=== PATIENT | female | born 1945 | race Two or more races ===

== ENCOUNTER 2022-08-06 23:21 | Inpatient (IN) | payer MEDICARE, OTHER ==
[~2022-08-06] VITALS: Ht 157.5 cm; Wt 81.9 kg
[2022-08-07 00:18] LABS: BASOPHILS % (AUTO) 0.5 % (0.0-2.0); HEMOGLOBIN 9.5 g/dL (12.0-16.0); LYMPHOCYTES # (AUTO) 0.6 K/uL (1.0-4.8); LYMPHOCYTES % (AUTO) 12.2 % (22.0-44.0); MEAN CORPUSCULAR HEMOGLOBIN 34.8 pg (26.0-34.0); MEAN CORPUSCULAR VOLUME 102 fL (80-100); MONOCYTES # (AUTO) 0.2 K/uL (0.1-1.0); MONOCYTES % (AUTO) 4.3 % (2.0-9.0); PLATELET COUNT (AUTO) 100 K/uL (150-450); RED BLOOD CELL COUNT(AUTO) 2.73 MIL/uL (4.00-5.20); RED CELL DISTRIBUTION WIDTH 15.2 % (11.5-14.5)
[2022-08-07 00:22] LABS: CALCIUM, TOTAL 8.2 mg/dL (8.8-10.5); CREATININE 1.14 mg/dL (0.60-1.30); POTASSIUM 4.3 mmol/L (3.5-5.1)
[2022-08-07 00:28] LABS: ALBUMIN 1.4 g/dL (3.4-5.0); BILIRUBIN,TOTAL 0.9 mg/dL (0.1-1.0); TOTAL PROTEIN, SERUM 6.2 g/dL (6.4-8.2)
[2022-08-07 00:30] LABS: AMMONIA 181 umol/L (11-32)
[2022-08-07 00:41] LABS: INR 1.3 (0.9-1.1); PROTHROMBIN TIME 13.6 SEC (9.4-11.6)
[2022-08-07] MEDS ORDERED: LACTULOSE 200 GM/300 ML RECTAL SOLUTION PR ONE (00:45)
[2022-08-07 01:41] LABS: ABG BASE EXCESS -2.3 mmol/L (-2.0-3.0); ABG CARBOXYHEMOGLOBIN 0.3 % (0.0-1.5); ABG HCO3 23.2 mmol/L (22.0-26.0); ABG METHEMOGLOBIN 0.3 % (0.0-1.5); ABG OXYGEN CONTENT 13.5 mL/dL (15.0-23.0); ABG OXYGEN SATURATION 94.5 % (95.0-98.0); ABG OXYHEMOGLOBIN 93.9 % (94.0-100.0); ABG PCO2 28 mmHg (35-45); ABG PH 7.499 (7.35-7.450); ABG TOTAL HEMOGLOBIN 10.2 G/dL (12.0-18.0); PO2, ARTERIAL BG 73.7 mmHg (75.0-83.0); SOURCE, BLOOD GAS ARTERIAL; TEMPERATURE, FAHRENHEIT, BG 98.6 FAHREN (96.0-98.6)
[2022-08-07 01:42] LABS: O2 DEVICE,BLOOD GAS VENTILATOR (ROOM AIR); PEEP,BG 5 cm H2O; SITE, BLOOD GAS RT RADIAL; VT, ABG 400 ml
[2022-08-07] MEDS ORDERED: FentaNYL CIT 1000MCG/0.9% NACL 100 ML IV PRN (05:00)
[2022-08-07] MEDS ORDERED: BISACODYL 10 MG RECTAL RECTAL SUPPOSITORY PR PRN (08:00)
[2022-08-07] MEDS ORDERED: ACETAMINOPHEN 325 MG TABLET PO PRN (08:00)
[2022-08-07] MEDS ORDERED: SODIUM CHLORIDE 0.9% 1,000 ML IV ONE ×3 (08:00→09:00)
[2022-08-07] MEDS ORDERED: DEXTROSE 50%-WATER 25 GM/50 ML SYRINGE IVP PRN (08:00)
[2022-08-07] MEDS: PANTOPRAZOLE SODIUM 40 MG/VIAL IVP SCH (09:20)
[2022-08-07 11:01] LABS: GLUCOSE,POINT OF CARE 169 MG/DL (70-110)
[2022-08-07 11:08] LABS: APPEARANCE,URINE HAZY (CLEAR); BILIRUBIN,URINE NEGATIVE (NEGATIVE); GLUCOSE, URINE (UA) TRACE mg/dL (NEGATIVE); KETONES,URINE NEGATIVE (NEGATIVE); LEUKOCYTE ESTERASE ,URINE LARGE (NEGATIVE); NITRATE,URINE NEGATIVE (NEGATIVE); OCCULT BLOOD,URINE LARGE (NEGATIVE); PH,URINE 5.5 (5.0-8.0); PROTEIN,URINE 100-200,SEE CONFIRM mg/dL (NEGATIVE); SPECIFIC GRAVITIY, URINE 1.013 (1.003-1.030); UROBILINOGEN,URINE <=1.0 mg/dL (<=1.0)
[2022-08-07] MEDS: INSULIN LISPRO 100 UNITS/ML SQ PRN (11:12)
[2022-08-07 11:14] LABS: AMPHET/METH SCREEN,URINE NEGATIVE (NEGATIVE); BARBITURATE SCREEN, URINE NEGATIVE (NEGATIVE); BENZODIAZEPINES SCREEN,URINE NEGATIVE (NEGATIVE); CANNABINOID SCREEN,URINE NEGATIVE (NEGATIVE); COCAINE SCREEN,URINE NEGATIVE (NEGATIVE); METHADONE SCREEN, URINE NEGATIVE (NEGATIVE); OPIATE SCREEN,URINE NEGATIVE (NEGATIVE); PHENCYCLIDINE SCREEN,URINE NEGATIVE (NEGATIVE)
[2022-08-07 11:21] LABS: GLUCOSE,POINT OF CARE 162 MG/DL (70-110)
[2022-08-07] MEDS ORDERED: GELATIN SPONGE,ABSORBABLE 50 MM TP ONE (11:23)
[2022-08-07 12:14] LABS: SULFOSALICYLIC ACID,URINE 1+ (Negative)
[2022-08-07 12:15] LABS: BACTERIA,URINE Rare /HPF (None Seen); SQUAMOUS EPITHELIAL CELL,UR Many /LPF (None Seen)
[2022-08-07] MEDS ORDERED: NOREPINEPHRINE 8 MG/D5%-WATER 250 ML IV ONE (13:03)
[2022-08-07 13:49] LABS: COVID AG,FIA SOURCE NASOPHARYNGEAL
[2022-08-07] MEDS ORDERED: NOREPINEPHRINE 8 MG/D5%-WATER 250 ML IV PRN (14:15)
[2022-08-07 15:42] LABS: CALCIUM, TOTAL 7.9 mg/dL (8.8-10.5); CREATININE 1.27 mg/dL (0.60-1.30); POTASSIUM 4.4 mmol/L (3.5-5.1)
[2022-08-07 15:48] LABS: ALBUMIN 1.1 g/dL (3.4-5.0); BILIRUBIN,TOTAL 1.2 mg/dL (0.1-1.0); TOTAL PROTEIN, SERUM 5.1 g/dL (6.4-8.2)
[2022-08-07] MEDS: LACTULOSE 20 GM/30 ML SOLUTION UDCUP PO SCH ×2 (16:07→20:51)
[2022-08-07] MEDS: RINGERS SOLUTION,LACTATED 1,000 ML IV SCH (18:11)
[2022-08-07] MEDS: TRANEXAMIC ACID 1,000 MG in DEXTROSE 5%-WATER 50 ML IV SCH (18:39)
[2022-08-07 19:18] LABS: ABG CARBOXYHEMOGLOBIN 0.3 % (0.0-1.5); ABG HCO3 25.9 mmol/L (22.0-26.0); ABG METHEMOGLOBIN 0.5 % (0.0-1.5); ABG OXYGEN CONTENT 13.3 mL/dL (15.0-23.0); ABG OXYGEN SATURATION 98.9 % (95.0-98.0); ABG OXYHEMOGLOBIN 98.1 % (94.0-100.0); ABG PCO2 28 mmHg (35-45); ABG PH 7.548 (7.35-7.450); ABG TOTAL HEMOGLOBIN 9.4 G/dL (12.0-18.0); PO2, ARTERIAL BG 156.1 mmHg (75.0-83.0); SOURCE, BLOOD GAS ARTERIAL; TEMPERATURE, FAHRENHEIT, BG 98.6 FAHREN (96.0-98.6)
[2022-08-07 19:19] LABS: O2 DEVICE,BLOOD GAS VENTILATOR (ROOM AIR); PEEP,BG 5 cm H2O; SITE, BLOOD GAS RT RADIAL; VT, ABG 400 ml
[2022-08-08 05:00] VITALS: BP 146/66
[2022-08-08 08:00] VITALS: BP 166/68
[2022-08-08] MEDS: FUROSEMIDE 20 MG/2 ML VIAL IVP SCH (08:43)
[2022-08-08] MEDS: LACTULOSE 20 GM/30 ML SOLUTION UDCUP PO SCH ×2 (08:43→21:34)
[2022-08-08] MEDS: PANTOPRAZOLE SODIUM 40 MG/VIAL IVP SCH (08:43)
[2022-08-08] MEDS: ETHYL ALCOHOL 62% ANTISEPTIC NASAL SANITIZER 0.6 ML AMPUL NASAL SCH ×2 (08:44→21:34)
[2022-08-08] MEDS ORDERED: HydrALAZINE HCL 20 MG/ML VIAL IVP PRN (10:45)
[2022-08-08] MEDS: HydrALAZINE HCL 20 MG/ML VIAL IVP PRN (10:52)
[2022-08-08] MEDS: RINGERS SOLUTION,LACTATED 1,000 ML IV SCH (10:53)
[2022-08-08] MEDS: TRANEXAMIC ACID 1,000 MG in DEXTROSE 5%-WATER 50 ML IV SCH (11:15)
[2022-08-08] MEDS: INSULIN LISPRO 100 UNITS/ML SQ PRN ×3 (11:26→21:35)
[2022-08-08 12:00] VITALS: BP 151/71
[2022-08-08 13:27] LABS: ABG BASE EXCESS -2.8 mmol/L (-2.0-3.0); ABG HCO3 22.8 mmol/L (22.0-26.0); ABG METHEMOGLOBIN 0.3 % (0.0-1.5); ABG OXYGEN CONTENT 13.3 mL/dL (15.0-23.0); ABG OXYGEN SATURATION 98.9 % (95.0-98.0); ABG OXYHEMOGLOBIN 98.6 % (94.0-100.0); ABG PCO2 26 mmHg (35-45); ABG PH 7.513 (7.35-7.450); ABG TOTAL HEMOGLOBIN 9.4 G/dL (12.0-18.0); PO2, ARTERIAL BG 135.6 mmHg (75.0-83.0); SOURCE, BLOOD GAS ARTERIAL; TEMPERATURE, FAHRENHEIT, BG 96.9 FAHREN (96.0-98.6)
[2022-08-08 13:28] LABS: ABG A-A DIFF O2 84.8 mmHg (10-20.0); O2 DEVICE,BLOOD GAS VENTILATOR (ROOM AIR); SITE, BLOOD GAS LFT RADIAL; SPONTANEOUS VT, BG 857 ml; VT, ABG 400 ml
[2022-08-08] MEDS ORDERED: NiCARDipine HCL 25 MG in SODIUM CHLORIDE 0.9% 240 ML IV PRN (14:15)
[2022-08-08 16:00] VITALS: BP 134/60
[2022-08-08 16:12] LABS: GLUCOSE,POINT OF CARE 180 MG/DL (70-110)
[2022-08-08 20:00] VITALS: BP 141/59
[2022-08-08 20:46] LABS: GLUCOSE,POINT OF CARE 203 MG/DL (70-110)
[2022-08-08 22:01] LABS: GLUCOSE,POINT OF CARE 197 MG/DL (70-110)
[2022-08-09] VITALS: BP 132/56
[2022-08-09 04:00] VITALS: BP 137/56
[2022-08-09] MEDS ORDERED: SODIUM CHLORIDE 0.9% 250 ML IV ONE (04:53)
[2022-08-09] MEDS: RINGERS SOLUTION,LACTATED 1,000 ML IV SCH ×2 (04:55→20:42)
[2022-08-09 05:16] LABS: GLUCOSE,POINT OF CARE 187 MG/DL (70-110)
[2022-08-09] MEDS: INSULIN LISPRO 100 UNITS/ML SQ PRN ×3 (05:30→17:38)
[2022-08-09 05:35] LABS: ALBUMIN 1.1 g/dL (3.4-5.0); BILIRUBIN,TOTAL 1.1 mg/dL (0.1-1.0); CALCIUM, TOTAL 8.1 mg/dL (8.8-10.5); CREATININE 1.6 mg/dL (0.60-1.30); POTASSIUM 4.6 mmol/L (3.5-5.1)
[2022-08-09 06:28] LABS: TOTAL PROTEIN, SERUM 5.5 g/dL (6.4-8.2)
[2022-08-09 08:00] VITALS: BP 203/92
[2022-08-09] MEDS: LACTULOSE 20 GM/30 ML SOLUTION UDCUP PO SCH ×2 (09:04→20:43)
[2022-08-09] MEDS: PANTOPRAZOLE SODIUM 40 MG/VIAL IVP SCH (09:04)
[2022-08-09] MEDS: FUROSEMIDE 20 MG/2 ML VIAL IVP SCH (09:04)
[2022-08-09] MEDS: ETHYL ALCOHOL 62% ANTISEPTIC NASAL SANITIZER 0.6 ML AMPUL NASAL SCH ×2 (09:04→20:43)
[2022-08-09] MEDS: HydrALAZINE HCL 20 MG/ML VIAL IVP PRN (10:29)
[2022-08-09 12:00] VITALS: BP 140/63
[2022-08-09] MEDS: TRANEXAMIC ACID 1,000 MG in DEXTROSE 5%-WATER 50 ML IV SCH (12:17)
[2022-08-09 12:31] LABS: GLUCOSE,POINT OF CARE 204 MG/DL (70-110)
[2022-08-09] MEDS: FentaNYL CIT 1000MCG/0.9% NACL 100 ML IV PRN (12:43)
[2022-08-09 16:00] VITALS: BP 154/72
[2022-08-09 19:15] LABS: GLUCOSE,POINT OF CARE 204 MG/DL (70-110)
[2022-08-09 20:00] VITALS: BP 136/49
[2022-08-10] VITALS: BP 135/51
[2022-08-10] MEDS: INSULIN LISPRO 100 UNITS/ML SQ PRN ×2 (01:59→06:00)
[2022-08-10 04:00] VITALS: BP 146/52
[2022-08-10] MEDS: FentaNYL CIT 1000MCG/0.9% NACL 100 ML IV PRN ×3 (04:53→16:17)
[2022-08-10 05:31] LABS: GLUCOSE,POINT OF CARE 169 MG/DL (70-110)
[2022-08-10 06:51] LABS: GLUCOSE,POINT OF CARE 147 MG/DL (70-110)
[2022-08-10 08:00] VITALS: BP 147/62
[2022-08-10 08:06] LABS: LDL CHOLESTEROL DIRECT 82 mg/dL (0-99)
[2022-08-10] MEDS: FUROSEMIDE 20 MG/2 ML VIAL IVP SCH (08:39)
[2022-08-10] MEDS: LACTULOSE 20 GM/30 ML SOLUTION UDCUP PO SCH ×2 (08:39→21:25)
[2022-08-10] MEDS: PANTOPRAZOLE SODIUM 40 MG/VIAL IVP SCH (08:39)
[2022-08-10] MEDS: ETHYL ALCOHOL 62% ANTISEPTIC NASAL SANITIZER 0.6 ML AMPUL NASAL SCH ×2 (08:40→21:25)
[2022-08-10 12:00] VITALS: BP 144/54
[2022-08-10] MEDS: TRANEXAMIC ACID 1,000 MG in DEXTROSE 5%-WATER 50 ML IV SCH (12:22)
[2022-08-10] MEDS: RINGERS SOLUTION,LACTATED 1,000 ML IV SCH (12:23)
[2022-08-10 13:11] LABS: GLUCOSE,POINT OF CARE 136 MG/DL (70-110)
[2022-08-10 16:00] VITALS: BP 138/47
[2022-08-10] MEDS ORDERED: LACTULOSE 20 GM/30 ML SOLUTION UDCUP PO PRN (17:15)
[2022-08-10 19:01] LABS: GLUCOSE,POINT OF CARE 139 MG/DL (70-110)
[2022-08-10 20:00] VITALS: BP 141/48
[2022-08-11] VITALS: BP 128/41
[2022-08-11] MEDS: INSULIN LISPRO 100 UNITS/ML SQ PRN ×3 (00:30→18:52)
[2022-08-11] MEDS: FentaNYL CIT 1000MCG/0.9% NACL 100 ML IV PRN ×2 (03:33→12:05)
[2022-08-11 04:00] VITALS: BP 128/41
[2022-08-11 05:53] LABS: BASOPHILS % (AUTO) 0.1 % (0.0-2.0); EOSINOPHILS % (AUTO) 0.3 % (1.0-6.0); HEMATOCRIT 25.6 % (36-46); HEMOGLOBIN 8.4 g/dL (12.0-16.0); LYMPHOCYTES # (AUTO) 0.7 K/uL (1.0-4.8); LYMPHOCYTES % (AUTO) 5.7 % (22.0-44.0); MEAN CORPUSCULAR HEMOGLOBIN 34.5 pg (26.0-34.0); MEAN CORPUSCULAR HGB CONC 32.7 G/dL (31.0-37.0); MEAN CORPUSCULAR VOLUME 106 fL (80-100); MONOCYTES # (AUTO) 1.2 K/uL (0.1-1.0); MONOCYTES % (AUTO) 9.3 % (2.0-9.0); NEUTROPHILS # (AUTO) 10.5 K/uL (1.8-7.7); NEUTROPHILS % (AUTO) 84.6 % (40.0-70.0); PLATELET COUNT (AUTO) 118 K/uL (150-450); RED BLOOD CELL COUNT(AUTO) 2.43 MIL/uL (4.00-5.20); RED CELL DISTRIBUTION WIDTH 16.7 % (11.5-14.5)
[2022-08-11 06:13] LABS: ALBUMIN 1.1 g/dL (3.4-5.0); BILIRUBIN,TOTAL 1.1 mg/dL (0.1-1.0); CALCIUM, TOTAL 8.2 mg/dL (8.8-10.5); CREATININE 1.43 mg/dL (0.60-1.30); POTASSIUM 4.8 mmol/L (3.5-5.1); TOTAL PROTEIN, SERUM 5.6 g/dL (6.4-8.2)
[2022-08-11] MEDS: RINGERS SOLUTION,LACTATED 1,000 ML IV SCH ×2 (06:35→20:58)
[2022-08-11 07:01] LABS: GLUCOSE,POINT OF CARE 167 MG/DL (70-110)
[2022-08-11 07:01] LABS: GLUCOSE,POINT OF CARE 176 MG/DL (70-110)
[2022-08-11 08:00] VITALS: BP 126/47
[2022-08-11] MEDS: LACTULOSE 20 GM/30 ML SOLUTION UDCUP PO SCH ×2 (08:32→20:56)
[2022-08-11] MEDS: PANTOPRAZOLE SODIUM 40 MG/VIAL IVP SCH (08:33)
[2022-08-11] MEDS: ETHYL ALCOHOL 62% ANTISEPTIC NASAL SANITIZER 0.6 ML AMPUL NASAL SCH ×2 (08:33→21:17)
[2022-08-11] MEDS: FUROSEMIDE 20 MG/2 ML VIAL IVP SCH (08:33)
[2022-08-11 09:52] LABS: BASOPHILS % (AUTO) 0.1 % (0.0-2.0); EOSINOPHILS % (AUTO) 0.3 % (1.0-6.0); HEMATOCRIT 22.3 % (36-46); HEMOGLOBIN 7.3 g/dL (12.0-16.0); LYMPHOCYTES # (AUTO) 0.7 K/uL (1.0-4.8); LYMPHOCYTES % (AUTO) 6.5 % (22.0-44.0); MEAN CORPUSCULAR HGB CONC 32.6 G/dL (31.0-37.0); MEAN CORPUSCULAR VOLUME 105 fL (80-100); MONOCYTES % (AUTO) 9.2 % (2.0-9.0); NEUTROPHILS # (AUTO) 9.2 K/uL (1.8-7.7); NEUTROPHILS % (AUTO) 83.9 % (40.0-70.0); PLATELET COUNT (AUTO) 90 K/uL (150-450); RED BLOOD CELL COUNT(AUTO) 2.13 MIL/uL (4.00-5.20); RED CELL DISTRIBUTION WIDTH 16.1 % (11.5-14.5)
[2022-08-11 10:00] LABS: BILIRUBIN,TOTAL 0.9 mg/dL (0.1-1.0); CALCIUM, TOTAL 8.2 mg/dL (8.8-10.5); CREATININE 1.49 mg/dL (0.60-1.30); POTASSIUM 4.9 mmol/L (3.5-5.1); TOTAL PROTEIN, SERUM 4.9 g/dL (6.4-8.2)
[2022-08-11] MEDS: TRANEXAMIC ACID 1,000 MG in DEXTROSE 5%-WATER 50 ML IV SCH (11:55)
[2022-08-11] MEDS ORDERED: SODIUM CHLORIDE 0.9% 500 ML IV ONE (11:58)
[2022-08-11 12:00] VITALS: BP 137/50
[2022-08-11 16:00] VITALS: BP 128/45
[2022-08-11] MEDS ORDERED: FUROSEMIDE 40 MG/4 ML VIAL IVP ONE (16:15)
[2022-08-11 20:00] VITALS: BP 142/61
[2022-08-11] MEDS: DEXMEDETOMIDINE HCL 400 MCG in SODIUM CHLORIDE 0.9% 96 ML IV PRN (20:57)
[2022-08-12] VITALS (17 sets, daily range): BP systolic 108–177; BP diastolic 50–67
[2022-08-12] MEDS: INSULIN LISPRO 100 UNITS/ML SQ PRN ×5 (00:07→23:42)
[2022-08-12 00:11] LABS: GLUCOSE,POINT OF CARE 206 MG/DL (70-110)
[2022-08-12 02:46] LABS: GLUCOSE,POINT OF CARE 233 MG/DL (70-110)
[2022-08-12 06:15] LABS: BASOPHILS % (AUTO) 0.1 % (0.0-2.0); EOSINOPHILS % (AUTO) 1.6 % (1.0-6.0); LYMPHOCYTES # (AUTO) 0.6 K/uL (1.0-4.8); LYMPHOCYTES % (AUTO) 11.2 % (22.0-44.0); MEAN CORPUSCULAR HEMOGLOBIN 34.3 pg (26.0-34.0); MEAN CORPUSCULAR HGB CONC 32.4 G/dL (31.0-37.0); MEAN CORPUSCULAR VOLUME 106 fL (80-100); MONOCYTES # (AUTO) 0.6 K/uL (0.1-1.0); MONOCYTES % (AUTO) 12.6 % (2.0-9.0); NEUTROPHILS # (AUTO) 3.8 K/uL (1.8-7.7); NEUTROPHILS % (AUTO) 74.5 % (40.0-70.0); PLATELET COUNT (AUTO) 67 K/uL (150-450); RED BLOOD CELL COUNT(AUTO) 1.93 MIL/uL (4.00-5.20); RED CELL DISTRIBUTION WIDTH 16.2 % (11.5-14.5)
[2022-08-12 06:20] LABS: HEMATOCRIT 20.4 % (36-46); HEMOGLOBIN 6.6 g/dL (12.0-16.0)
[2022-08-12 06:22] LABS: ALBUMIN 0.9 g/dL (3.4-5.0); BILIRUBIN,TOTAL 0.5 mg/dL (0.1-1.0); CREATININE 1.58 mg/dL (0.60-1.30); POTASSIUM 4.7 mmol/L (3.5-5.1); TOTAL PROTEIN, SERUM 4.6 g/dL (6.4-8.2)
[2022-08-12] MEDS ORDERED: SODIUM CHLORIDE 0.9% 250 ML IV ONE (09:12)
[2022-08-12] MEDS: PANTOPRAZOLE SODIUM 40 MG/VIAL IVP SCH (09:54)
[2022-08-12] MEDS: FUROSEMIDE 20 MG/2 ML VIAL IVP SCH (09:54)
[2022-08-12] MEDS: ETHYL ALCOHOL 62% ANTISEPTIC NASAL SANITIZER 0.6 ML AMPUL NASAL SCH ×2 (09:54→20:36)
[2022-08-12] MEDS: LACTULOSE 20 GM/30 ML SOLUTION UDCUP PO SCH ×3 (09:54→23:41)
[2022-08-12 10:36] LABS: GLUCOSE,POINT OF CARE 252 MG/DL (70-110)
[2022-08-12] MEDS: TRANEXAMIC ACID 1,000 MG in DEXTROSE 5%-WATER 50 ML IV SCH (12:57)
[2022-08-12 13:36] LABS: GLUCOSE,POINT OF CARE 246 MG/DL (70-110)
[2022-08-12] MEDS ORDERED: CefTRIAXone 1 GM/DEXTROSE 50 ML IV SCH (14:00)
[2022-08-12] MEDS: RINGERS SOLUTION,LACTATED 1,000 ML IV SCH (14:32)
[2022-08-12] MEDS ORDERED: *CLINICAL-LEVOFLOXACIN IVPB DOSING CLINICAL ONE (16:45)
[2022-08-12] MEDS: LEVOFLOXACIN 750 MG/D5% WATER 150 ML IV SCH (17:06)
[2022-08-12] MEDS ORDERED: VANCOMYCIN 1GM/WATER(PEG/NADA) 200 ML IV ONE (18:00)
[2022-08-12 19:41] LABS: GLUCOSE,POINT OF CARE 296 MG/DL (70-110)
[2022-08-12] MEDS: DEXMEDETOMIDINE HCL 400 MCG in SODIUM CHLORIDE 0.9% 96 ML IV PRN (21:59)
[2022-08-13] VITALS: BP 146/54
[2022-08-13 04:00] VITALS: BP 129/51
[2022-08-13 05:36] LABS: EOSINOPHILS % (AUTO) 0.6 % (1.0-6.0); HEMATOCRIT 27.3 % (36-46); LYMPHOCYTES # (AUTO) 0.5 K/uL (1.0-4.8); LYMPHOCYTES % (AUTO) 6.8 % (22.0-44.0); MEAN CORPUSCULAR HEMOGLOBIN 33.7 pg (26.0-34.0); MEAN CORPUSCULAR HGB CONC 33.1 G/dL (31.0-37.0); MEAN CORPUSCULAR VOLUME 102 fL (80-100); MONOCYTES # (AUTO) 0.8 K/uL (0.1-1.0); MONOCYTES % (AUTO) 12.4 % (2.0-9.0); NEUTROPHILS # (AUTO) 5.4 K/uL (1.8-7.7); NEUTROPHILS % (AUTO) 80.2 % (40.0-70.0); PLATELET COUNT (AUTO) 62 K/uL (150-450); RED BLOOD CELL COUNT(AUTO) 2.68 MIL/uL (4.00-5.20); RED CELL DISTRIBUTION WIDTH 17.9 % (11.5-14.5)
[2022-08-13] MEDS: INSULIN LISPRO 100 UNITS/ML SQ PRN ×4 (05:45→23:57)
[2022-08-13] MEDS ORDERED: SODIUM CHLORIDE 0.9% 250 ML IV ONE (05:49)
[2022-08-13 05:51] LABS: BILIRUBIN,TOTAL 0.6 mg/dL (0.1-1.0); CALCIUM, TOTAL 8.3 mg/dL (8.8-10.5); CREATININE 1.75 mg/dL (0.60-1.30); POTASSIUM 5.1 mmol/L (3.5-5.1); TOTAL PROTEIN, SERUM 5.1 g/dL (6.4-8.2)
[2022-08-13] MEDS: RINGERS SOLUTION,LACTATED 1,000 ML IV SCH ×2 (06:11→22:58)
[2022-08-13 06:37] LABS: GLUCOSE,POINT OF CARE 262 MG/DL (70-110)
[2022-08-13 08:00] VITALS: BP 117/50
[2022-08-13] MEDS ORDERED: VANCOMYCIN 1GM/WATER(PEG/NADA) 200 ML IV SCH (08:00)
[2022-08-13 08:21] LABS: GLUCOSE,POINT OF CARE 265 MG/DL (70-110)
[2022-08-13] MEDS: VANCOMYCIN HCL 750 MG in DEXTROSE 5%-WATER 250 ML IV SCH (08:34)
[2022-08-13] MEDS: LACTULOSE 20 GM/30 ML SOLUTION UDCUP PO SCH ×3 (08:34→23:00)
[2022-08-13] MEDS: FUROSEMIDE 20 MG/2 ML VIAL IVP SCH (08:35)
[2022-08-13] MEDS: ETHYL ALCOHOL 62% ANTISEPTIC NASAL SANITIZER 0.6 ML AMPUL NASAL SCH ×2 (08:35→20:16)
[2022-08-13] MEDS: PANTOPRAZOLE SODIUM 40 MG/VIAL IVP SCH (08:35)
[2022-08-13] MEDS: METOCLOPRAMIDE HCL 5 MG/ML 2 ML VIAL IVP SCH ×2 (11:32→20:16)
[2022-08-13] MEDS: TRANEXAMIC ACID 1,000 MG in DEXTROSE 5%-WATER 50 ML IV SCH (11:33)
[2022-08-13 12:00] VITALS: BP 148/56
[2022-08-13 12:31] LABS: GLUCOSE,POINT OF CARE 312 MG/DL (70-110)
[2022-08-13] MEDS ORDERED: DEXTROSE 50%-WATER 25 GM/50 ML SYRINGE IVP PRN (15:30)
[2022-08-13 16:00] VITALS: BP 129/63
[2022-08-13 18:10] LABS: SITE, BLOOD GAS RT RADIAL
[2022-08-13 18:11] LABS: ABG A-A DIFF O2 116.9 mmHg (10-20.0); ABG BASE EXCESS -3.9 mmol/L (-2.0-3.0); ABG CARBOXYHEMOGLOBIN 0.3 % (0.0-1.5); ABG HCO3 21.7 mmol/L (22.0-26.0); ABG METHEMOGLOBIN 0.3 % (0.0-1.5); ABG OXYGEN CONTENT 14.1 mL/dL (15.0-23.0); ABG OXYGEN SATURATION 97.5 % (95.0-98.0); ABG OXYHEMOGLOBIN 96.9 % (94.0-100.0); ABG PCO2 31 mmHg (35-45); ABG PH 7.439 (7.35-7.450); ABG TOTAL HEMOGLOBIN 10.2 G/dL (12.0-18.0); PO2, ARTERIAL BG 98.1 mmHg (75.0-83.0); SOURCE, BLOOD GAS ARTERIAL; TEMPERATURE, FAHRENHEIT, BG 96.5 FAHREN (96.0-98.6)
[2022-08-13 18:12] LABS: O2 DEVICE,BLOOD GAS VENTILATOR (ROOM AIR); PEEP,BG 5 cm H2O; PRESSURE SUPPORT, BG 10 cm H2O; SPONTANEOUS VT, BG 443 ml; VENT MODE, BG Press. Support Vent. (ROOM AIR)
[2022-08-13 18:26] LABS: GLUCOSE,POINT OF CARE 293 MG/DL (70-110)
[2022-08-13 20:00] VITALS: BP 117/56
[2022-08-13] MEDS: DEXMEDETOMIDINE HCL 400 MCG in SODIUM CHLORIDE 0.9% 96 ML IV PRN (22:36)
[2022-08-14] VITALS: BP 149/51
[2022-08-14 00:16] LABS: GLUCOSE,POINT OF CARE 275 MG/DL (70-110)
[2022-08-14 04:00] VITALS: BP 128/55
[2022-08-14] MEDS: INSULIN LISPRO 100 UNITS/ML SQ PRN ×3 (05:44→18:39)
[2022-08-14 08:00] VITALS: BP 125/53
[2022-08-14] MEDS: LACTULOSE 20 GM/30 ML SOLUTION UDCUP PO SCH ×2 (08:27→16:44)
[2022-08-14] MEDS: METOCLOPRAMIDE HCL 5 MG/ML 2 ML VIAL IVP SCH ×2 (08:27→21:27)
[2022-08-14] MEDS: FUROSEMIDE 20 MG/2 ML VIAL IVP SCH (08:27)
[2022-08-14] MEDS: PANTOPRAZOLE SODIUM 40 MG/VIAL IVP SCH (08:28)
[2022-08-14] MEDS: VANCOMYCIN HCL 750 MG in DEXTROSE 5%-WATER 250 ML IV SCH (08:29)
[2022-08-14] MEDS: ETHYL ALCOHOL 62% ANTISEPTIC NASAL SANITIZER 0.6 ML AMPUL NASAL SCH ×2 (08:29→21:27)
[2022-08-14] MEDS: TRANEXAMIC ACID 1,000 MG in DEXTROSE 5%-WATER 50 ML IV SCH (11:23)
[2022-08-14 12:00] VITALS: BP 123/41
[2022-08-14 12:11] LABS: GLUCOSE,POINT OF CARE 245 MG/DL (70-110)
[2022-08-14 15:46] LABS: GLUCOSE,POINT OF CARE 299 MG/DL (70-110)
[2022-08-14 16:00] VITALS: BP 131/55
[2022-08-14] MEDS ORDERED: LevETIRAcetam 500 MG in DEXTROSE 5%-WATER 100 ML IV SCH (16:00)
[2022-08-14] MEDS: RINGERS SOLUTION,LACTATED 1,000 ML IV SCH (16:43)
[2022-08-14] MEDS: LEVOFLOXACIN 750 MG/D5% WATER 150 ML IV SCH (16:43)
[2022-08-14] MEDS: DEXMEDETOMIDINE HCL 400 MCG in SODIUM CHLORIDE 0.9% 96 ML IV PRN (18:38)
[2022-08-14 19:26] LABS: GLUCOSE,POINT OF CARE 295 MG/DL (70-110)
[2022-08-14 20:00] VITALS: BP 132/55
[2022-08-14] MEDS ORDERED: LevETIRAcetam 1,000 MG in DEXTROSE 5%-WATER 100 ML IV SCH (22:00)
[2022-08-14 22:54] LABS: BASOPHILS % (AUTO) 0.4 % (0.0-2.0); EOSINOPHILS % (AUTO) 0.5 % (1.0-6.0); HEMATOCRIT 26.4 % (36-46); HEMOGLOBIN 8.7 g/dL (12.0-16.0); LYMPHOCYTES # (AUTO) 0.5 K/uL (1.0-4.8); LYMPHOCYTES % (AUTO) 7.2 % (22.0-44.0); MEAN CORPUSCULAR HEMOGLOBIN 33.3 pg (26.0-34.0); MEAN CORPUSCULAR HGB CONC 32.9 G/dL (31.0-37.0); MEAN CORPUSCULAR VOLUME 101 fL (80-100); MONOCYTES # (AUTO) 0.7 K/uL (0.1-1.0); MONOCYTES % (AUTO) 9.6 % (2.0-9.0); NEUTROPHILS % (AUTO) 82.3 % (40.0-70.0); RED BLOOD CELL COUNT(AUTO) 2.61 MIL/uL (4.00-5.20); RED CELL DISTRIBUTION WIDTH 17.4 % (11.5-14.5)
[2022-08-14 23:05] LABS: ALBUMIN 0.9 g/dL (3.4-5.0); BILIRUBIN,TOTAL 0.5 mg/dL (0.1-1.0); CALCIUM, TOTAL 8.4 mg/dL (8.8-10.5); CREATININE 1.92 mg/dL (0.60-1.30); POTASSIUM 5.3 mmol/L (3.5-5.1); TOTAL PROTEIN, SERUM 4.9 g/dL (6.4-8.2)
[2022-08-14 23:07] LABS: PLATELET COUNT (AUTO) 54 K/uL (150-450)
[2022-08-15] VITALS: BP 132/55
[2022-08-15] MEDS: LACTULOSE 20 GM/30 ML SOLUTION UDCUP PO SCH ×3 (01:05→16:21)
[2022-08-15] MEDS: INSULIN LISPRO 100 UNITS/ML SQ PRN ×4 (01:33→18:54)
[2022-08-15 02:36] LABS: GLUCOSE,POINT OF CARE 329 MG/DL (70-110)
[2022-08-15 04:00] VITALS: BP 130/71
[2022-08-15 05:56] LABS: BASOPHILS % (AUTO) 0.5 % (0.0-2.0); EOSINOPHILS % (AUTO) 0.9 % (1.0-6.0); HEMOGLOBIN 9.1 g/dL (12.0-16.0); LYMPHOCYTES # (AUTO) 0.4 K/uL (1.0-4.8); LYMPHOCYTES % (AUTO) 6.6 % (22.0-44.0); MEAN CORPUSCULAR HEMOGLOBIN 34.3 pg (26.0-34.0); MEAN CORPUSCULAR HGB CONC 33.7 G/dL (31.0-37.0); MEAN CORPUSCULAR VOLUME 102 fL (80-100); MONOCYTES # (AUTO) 0.7 K/uL (0.1-1.0); MONOCYTES % (AUTO) 9.9 % (2.0-9.0); NEUTROPHILS # (AUTO) 5.4 K/uL (1.8-7.7); NEUTROPHILS % (AUTO) 82.1 % (40.0-70.0); RED BLOOD CELL COUNT(AUTO) 2.65 MIL/uL (4.00-5.20); RED CELL DISTRIBUTION WIDTH 17.5 % (11.5-14.5)
[2022-08-15 06:26] LABS: ALBUMIN 0.8 g/dL (3.4-5.0); BILIRUBIN,TOTAL 0.5 mg/dL (0.1-1.0); CALCIUM, TOTAL 8.5 mg/dL (8.8-10.5); CREATININE 1.88 mg/dL (0.60-1.30); POTASSIUM 5.9 mmol/L (3.5-5.1); TOTAL PROTEIN, SERUM 4.9 g/dL (6.4-8.2); VANCOMYCIN,RANDOM 12.6 mcg/mL (25.0-50.0)
[2022-08-15 06:44] LABS: PLATELET COUNT (AUTO) 11 K/uL (150-450)
[2022-08-15 07:11] LABS: GLUCOSE,POINT OF CARE 295 MG/DL (70-110)
[2022-08-15 08:00] VITALS: BP 131/59
[2022-08-15] MEDS: VANCOMYCIN HCL 750 MG in DEXTROSE 5%-WATER 250 ML IV SCH (08:12)
[2022-08-15] MEDS: PANTOPRAZOLE SODIUM 40 MG/VIAL IVP SCH (08:12)
[2022-08-15] MEDS: RINGERS SOLUTION,LACTATED 1,000 ML IV SCH (08:12)
[2022-08-15] MEDS: FUROSEMIDE 20 MG/2 ML VIAL IVP SCH (08:13)
[2022-08-15] MEDS: METOCLOPRAMIDE HCL 5 MG/ML 2 ML VIAL IVP SCH ×2 (08:13→20:02)
[2022-08-15] MEDS: ETHYL ALCOHOL 62% ANTISEPTIC NASAL SANITIZER 0.6 ML AMPUL NASAL SCH ×2 (09:25→20:02)
[2022-08-15 12:00] VITALS: BP 148/56
[2022-08-15] MEDS: TRANEXAMIC ACID 1,000 MG in DEXTROSE 5%-WATER 50 ML IV SCH (12:26)
[2022-08-15 12:36] LABS: GLUCOSE,POINT OF CARE 303 MG/DL (70-110)
[2022-08-15 16:00] VITALS: BP 146/65
[2022-08-15 18:22] LABS: GLUCOSE,POINT OF CARE 301 MG/DL (70-110)
[2022-08-15 20:00] VITALS: BP 151/59
[2022-08-16] VITALS: BP 157/59
[2022-08-16] MEDS: DEXMEDETOMIDINE HCL 400 MCG in SODIUM CHLORIDE 0.9% 96 ML IV PRN (00:02)
[2022-08-16] MEDS: LACTULOSE 20 GM/30 ML SOLUTION UDCUP PO SCH ×3 (00:29→15:24)
[2022-08-16] MEDS: INSULIN LISPRO 100 UNITS/ML SQ PRN ×5 (00:44→22:03)
[2022-08-16] MEDS: HydrALAZINE HCL 20 MG/ML VIAL IVP PRN (01:10)
[2022-08-16] MEDS: RINGERS SOLUTION,LACTATED 1,000 ML IV SCH ×2 (01:17→17:30)
[2022-08-16 01:21] LABS: GLUCOSE,POINT OF CARE 305 MG/DL (70-110)
[2022-08-16 04:00] VITALS: BP 148/61
[2022-08-16 06:26] LABS: GLUCOSE,POINT OF CARE 329 MG/DL (70-110)
[2022-08-16 08:00] VITALS: BP 143/56
[2022-08-16] MEDS: PANTOPRAZOLE SODIUM 40 MG/VIAL IVP SCH (08:13)
[2022-08-16] MEDS: FUROSEMIDE 20 MG/2 ML VIAL IVP SCH (08:13)
[2022-08-16] MEDS: METOCLOPRAMIDE HCL 5 MG/ML 2 ML VIAL IVP SCH ×2 (08:13→20:02)
[2022-08-16] MEDS: ETHYL ALCOHOL 62% ANTISEPTIC NASAL SANITIZER 0.6 ML AMPUL NASAL SCH ×2 (08:14→20:02)
[2022-08-16] MEDS: VANCOMYCIN HCL 750 MG in DEXTROSE 5%-WATER 250 ML IV SCH (08:14)
[2022-08-16 11:39] LABS: BASOPHILS % (AUTO) 0.6 % (0.0-2.0); EOSINOPHILS % (AUTO) 0.8 % (1.0-6.0); HEMATOCRIT 30.2 % (36-46); HEMOGLOBIN 9.7 g/dL (12.0-16.0); LYMPHOCYTES # (AUTO) 0.8 K/uL (1.0-4.8); LYMPHOCYTES % (AUTO) 8.2 % (22.0-44.0); MEAN CORPUSCULAR HEMOGLOBIN 33.1 pg (26.0-34.0); MEAN CORPUSCULAR HGB CONC 32.2 G/dL (31.0-37.0); MEAN CORPUSCULAR VOLUME 103 fL (80-100); MONOCYTES # (AUTO) 0.9 K/uL (0.1-1.0); MONOCYTES % (AUTO) 9.4 % (2.0-9.0); PLATELET COUNT (AUTO) 24 K/uL (150-450); RED BLOOD CELL COUNT(AUTO) 2.93 MIL/uL (4.00-5.20); RED CELL DISTRIBUTION WIDTH 18.2 % (11.5-14.5)
[2022-08-16 12:00] VITALS: BP 118/38
[2022-08-16 12:01] LABS: CALCIUM, TOTAL 8.8 mg/dL (8.8-10.5); CREATININE 1.83 mg/dL (0.60-1.30); POTASSIUM 5.6 mmol/L (3.5-5.1)
[2022-08-16] MEDS: TRANEXAMIC ACID 1,000 MG in DEXTROSE 5%-WATER 50 ML IV SCH (12:42)
[2022-08-16 12:56] LABS: GLUCOSE,POINT OF CARE 353 MG/DL (70-110)
[2022-08-16] MEDS ORDERED: DEXTROSE 50%-WATER 25 GM/50 ML SYRINGE IVP PRN (15:15)
[2022-08-16 16:00] VITALS: BP 121/45
[2022-08-16] MEDS: LEVOFLOXACIN 750 MG/D5% WATER 150 ML IV SCH (17:10)
[2022-08-16 18:12] LABS: GLUCOSE,POINT OF CARE 353 MG/DL (70-110)
[2022-08-16 20:00] VITALS: BP 148/60
[2022-08-16] MEDS: INSULIN GLARGINE,HUM.REC.ANLOG 100 UNITS/ML SQ SCH (20:03)
[2022-08-17] VITALS: BP 116/51
[2022-08-17 00:21] LABS: GLUCOSE,POINT OF CARE 327 MG/DL (70-110)
[2022-08-17] MEDS: LACTULOSE 20 GM/30 ML SOLUTION UDCUP PO SCH ×3 (00:31→16:36)
[2022-08-17] MEDS ORDERED: SODIUM CHLORIDE 0.9% 250 ML IV ONE (02:41)
[2022-08-17 04:00] VITALS: BP 111/49
[2022-08-17] MEDS: DEXMEDETOMIDINE HCL 400 MCG in SODIUM CHLORIDE 0.9% 96 ML IV PRN ×2 (04:39→22:02)
[2022-08-17] MEDS: INSULIN LISPRO 100 UNITS/ML SQ PRN ×2 (05:56→20:43)
[2022-08-17 06:06] LABS: GLUCOSE,POINT OF CARE 309 MG/DL (70-110)
[2022-08-17 06:48] LABS: EOSINOPHILS % (AUTO) 0.9 % (1.0-6.0); HEMATOCRIT 26.7 % (36-46); HEMOGLOBIN 8.8 g/dL (12.0-16.0); LYMPHOCYTES # (AUTO) 0.4 K/uL (1.0-4.8); LYMPHOCYTES % (AUTO) 5.8 % (22.0-44.0); MEAN CORPUSCULAR HEMOGLOBIN 33.6 pg (26.0-34.0); MEAN CORPUSCULAR HGB CONC 33.1 G/dL (31.0-37.0); MEAN CORPUSCULAR VOLUME 101 fL (80-100); MONOCYTES # (AUTO) 0.5 K/uL (0.1-1.0); MONOCYTES % (AUTO) 7.2 % (2.0-9.0); NEUTROPHILS # (AUTO) 6.1 K/uL (1.8-7.7); PLATELET COUNT (AUTO) 40 K/uL (150-450); RED BLOOD CELL COUNT(AUTO) 2.63 MIL/uL (4.00-5.20); RED CELL DISTRIBUTION WIDTH 17.2 % (11.5-14.5)
[2022-08-17 06:52] LABS: CALCIUM, TOTAL 8.9 mg/dL (8.8-10.5); CREATININE 1.87 mg/dL (0.60-1.30); POTASSIUM 5.3 mmol/L (3.5-5.1)
[2022-08-17 06:54] LABS: NEUTROPHILS % (AUTO) 86.1 % (40.0-70.0)
[2022-08-17] MEDS: PANTOPRAZOLE SODIUM 40 MG/VIAL IVP SCH (07:55)
[2022-08-17] MEDS: FUROSEMIDE 20 MG/2 ML VIAL IVP SCH (07:56)
[2022-08-17] MEDS: VANCOMYCIN HCL 750 MG in DEXTROSE 5%-WATER 250 ML IV SCH (07:57)
[2022-08-17 08:00] VITALS: BP 118/58
[2022-08-17] MEDS: ETHYL ALCOHOL 62% ANTISEPTIC NASAL SANITIZER 0.6 ML AMPUL NASAL SCH ×2 (08:00→20:38)
[2022-08-17] MEDS: RINGERS SOLUTION,LACTATED 1,000 ML IV SCH (09:42)
[2022-08-17] MEDS: METOCLOPRAMIDE HCL 5 MG/ML 2 ML VIAL IVP SCH ×2 (09:42→20:38)
[2022-08-17] MEDS: TRANEXAMIC ACID 1,000 MG in DEXTROSE 5%-WATER 50 ML IV SCH (11:00)
[2022-08-17 12:00] VITALS: BP 117/48
[2022-08-17 16:00] VITALS: BP 118/49
[2022-08-17 20:00] VITALS: BP 120/46
[2022-08-17 20:36] LABS: GLUCOSE,POINT OF CARE 306 MG/DL (70-110)
[2022-08-17 20:36] LABS: GLUCOSE,POINT OF CARE 314 MG/DL (70-110)
[2022-08-17] MEDS: INSULIN GLARGINE,HUM.REC.ANLOG 100 UNITS/ML SQ SCH (20:41)
[2022-08-17 20:56] LABS: GLUCOSE,POINT OF CARE 261 MG/DL (70-110)
[2022-08-18] VITALS: BP 119/45
[2022-08-18] MEDS: LACTULOSE 20 GM/30 ML SOLUTION UDCUP PO SCH ×3 (01:16→17:10)
[2022-08-18] MEDS: RINGERS SOLUTION,LACTATED 1,000 ML IV SCH ×2 (02:48→17:39)
[2022-08-18 04:00] VITALS: BP 160/62
[2022-08-18] MEDS: INSULIN LISPRO 100 UNITS/ML SQ PRN ×2 (06:55→17:37)
[2022-08-18 07:16] LABS: GLUCOSE,POINT OF CARE 295 MG/DL (70-110)
[2022-08-18 08:00] VITALS: BP 143/56
[2022-08-18 09:19] LABS: CALCIUM, TOTAL 8.8 mg/dL (8.8-10.5); CREATININE 1.96 mg/dL (0.60-1.30); POTASSIUM 3.9 mmol/L (3.5-5.1); VANCOMYCIN,RANDOM 16.4 mcg/mL (25.0-50.0)
[2022-08-18] MEDS: ETHYL ALCOHOL 62% ANTISEPTIC NASAL SANITIZER 0.6 ML AMPUL NASAL SCH ×2 (09:32→21:09)
[2022-08-18] MEDS: METOCLOPRAMIDE HCL 5 MG/ML 2 ML VIAL IVP SCH ×2 (09:33→21:09)
[2022-08-18] MEDS: VANCOMYCIN HCL 750 MG in DEXTROSE 5%-WATER 250 ML IV SCH (09:33)
[2022-08-18] MEDS: FUROSEMIDE 20 MG/2 ML VIAL IVP SCH (09:34)
[2022-08-18] MEDS: PANTOPRAZOLE SODIUM 40 MG/VIAL IVP SCH (09:41)
[2022-08-18 12:00] VITALS: BP 104/57
[2022-08-18] MEDS: TRANEXAMIC ACID 1,000 MG in DEXTROSE 5%-WATER 50 ML IV SCH (12:59)
[2022-08-18 16:00] VITALS: BP 139/77
[2022-08-18] MEDS: LEVOFLOXACIN 750 MG/D5% WATER 150 ML IV SCH (17:09)
[2022-08-18 17:42] LABS: GLUCOSE,POINT OF CARE 327 MG/DL (70-110)
[2022-08-18 20:00] VITALS: BP 152/56
[2022-08-18] MEDS: DEXMEDETOMIDINE HCL 400 MCG in SODIUM CHLORIDE 0.9% 96 ML IV PRN (21:09)
[2022-08-18] MEDS: INSULIN GLARGINE,HUM.REC.ANLOG 100 UNITS/ML SQ SCH (21:14)
[2022-08-19] VITALS: BP 123/56
[2022-08-19] MEDS: LACTULOSE 20 GM/30 ML SOLUTION UDCUP PO SCH ×3 (00:28→17:07)
[2022-08-19] MEDS: INSULIN LISPRO 100 UNITS/ML SQ PRN ×3 (00:29→15:15)
[2022-08-19 03:11] LABS: GLUCOSE,POINT OF CARE 321 MG/DL (70-110)
[2022-08-19 03:12] LABS: GLUCOSE,POINT OF CARE 293 MG/DL (70-110)
[2022-08-19 04:00] VITALS: BP 120/54
[2022-08-19 06:16] LABS: BASOPHILS % (AUTO) 0.1 % (0.0-2.0); EOSINOPHILS % (AUTO) 0.2 % (1.0-6.0); HEMATOCRIT 26.5 % (36-46); HEMOGLOBIN 8.6 g/dL (12.0-16.0); LYMPHOCYTES # (AUTO) 0.4 K/uL (1.0-4.8); LYMPHOCYTES % (AUTO) 4.1 % (22.0-44.0); MEAN CORPUSCULAR HEMOGLOBIN 33.3 pg (26.0-34.0); MEAN CORPUSCULAR HGB CONC 32.5 G/dL (31.0-37.0); MEAN CORPUSCULAR VOLUME 102 fL (80-100); MONOCYTES # (AUTO) 0.8 K/uL (0.1-1.0); MONOCYTES % (AUTO) 7.4 % (2.0-9.0); NEUTROPHILS # (AUTO) 9.3 K/uL (1.8-7.7); PLATELET COUNT (AUTO) 36 K/uL (150-450); RED BLOOD CELL COUNT(AUTO) 2.59 MIL/uL (4.00-5.20); RED CELL DISTRIBUTION WIDTH 16.9 % (11.5-14.5)
[2022-08-19 06:28] LABS: CALCIUM, TOTAL 8.8 mg/dL (8.8-10.5); CREATININE 2.05 mg/dL (0.60-1.30); POTASSIUM 3.4 mmol/L (3.5-5.1)
[2022-08-19 07:03] LABS: NEUTROPHILS % (AUTO) 88.2 % (40.0-70.0)
[2022-08-19 08:00] VITALS: BP 137/55
[2022-08-19] MEDS: VANCOMYCIN HCL 750 MG in DEXTROSE 5%-WATER 250 ML IV SCH (08:50)
[2022-08-19] MEDS: DEXMEDETOMIDINE HCL 400 MCG in SODIUM CHLORIDE 0.9% 96 ML IV PRN ×2 (08:51→21:19)
[2022-08-19] MEDS: PANTOPRAZOLE SODIUM 40 MG/VIAL IVP SCH (08:52)
[2022-08-19] MEDS: METOCLOPRAMIDE HCL 5 MG/ML 2 ML VIAL IVP SCH ×2 (08:52→22:13)
[2022-08-19] MEDS: FUROSEMIDE 20 MG/2 ML VIAL IVP SCH (08:52)
[2022-08-19] MEDS: ETHYL ALCOHOL 62% ANTISEPTIC NASAL SANITIZER 0.6 ML AMPUL NASAL SCH ×2 (08:52→22:13)
[2022-08-19 10:00] LABS: GLUCOSE,POINT OF CARE 276 MG/DL (70-110)
[2022-08-19 12:00] VITALS: BP 123/59
[2022-08-19] MEDS: TRANEXAMIC ACID 1,000 MG in DEXTROSE 5%-WATER 50 ML IV SCH (13:00)
[2022-08-19 13:56] LABS: GLUCOSE,POINT OF CARE 340 MG/DL (70-110)
[2022-08-19] MEDS: RINGERS SOLUTION,LACTATED 1,000 ML IV SCH (15:03)
[2022-08-19 16:00] VITALS: BP 114/55
[2022-08-19 18:07] LABS: GLUCOSE,POINT OF CARE 367 MG/DL (70-110)
[2022-08-19 20:00] VITALS: BP 114/58
[2022-08-19] MEDS: INSULIN GLARGINE,HUM.REC.ANLOG 100 UNITS/ML SQ SCH (22:16)
[2022-08-19 22:22] LABS: GLUCOSE,POINT OF CARE 339 MG/DL (70-110)
[2022-08-20] VITALS (10 sets, daily range): BP systolic 102–148; BP diastolic 50–63
[2022-08-20] MEDS ORDERED: DEXTROSE 50%-WATER 25 GM/50 ML SYRINGE IVP PRN
[2022-08-20] MEDS: LACTULOSE 20 GM/30 ML SOLUTION UDCUP PO SCH ×3 (00:10→15:36)
[2022-08-20] MEDS: INSULIN LISPRO 100 UNITS/ML SQ PRN ×2 (05:16→12:55)
[2022-08-20 05:27] LABS: GLUCOSE,POINT OF CARE 376 MG/DL (70-110)
[2022-08-20] MEDS ORDERED: POTASSIUM CHLORIDE 10% 40 MEQ/30 ML LIQUID UDCUP NG ONE (05:30)
[2022-08-20] MEDS: RINGERS SOLUTION,LACTATED 1,000 ML IV SCH (05:49)
[2022-08-20 06:57] LABS: CALCIUM, TOTAL 8.8 mg/dL (8.8-10.5); CREATININE 2.19 mg/dL (0.60-1.30); POTASSIUM 3.4 mmol/L (3.5-5.1)
[2022-08-20] MEDS ORDERED: INSULIN GLARGINE,HUM.REC.ANLOG 100 UNITS/ML SQ SCH (09:00)
[2022-08-20] MEDS: METOCLOPRAMIDE HCL 5 MG/ML 2 ML VIAL IVP SCH (09:04)
[2022-08-20] MEDS: VANCOMYCIN HCL 750 MG in DEXTROSE 5%-WATER 250 ML IV SCH (09:04)
[2022-08-20] MEDS: PANTOPRAZOLE SODIUM 40 MG/VIAL IVP SCH (09:04)
[2022-08-20] MEDS: ETHYL ALCOHOL 62% ANTISEPTIC NASAL SANITIZER 0.6 ML AMPUL NASAL SCH (09:05)
[2022-08-20] MEDS: TRANEXAMIC ACID 1,000 MG in DEXTROSE 5%-WATER 50 ML IV SCH (13:13)
[2022-08-20] MEDS: ONDANSETRON HCL 4 MG/2 ML VIAL IVP PRN ×2 (13:44→18:11)
[2022-08-20 14:11] LABS: GLUCOSE,POINT OF CARE 373 MG/DL (70-110)
[2022-08-20] MEDS: HydrALAZINE HCL 20 MG/ML VIAL IVP PRN (15:36)
[2022-08-20] MEDS ORDERED: LORazepam 2 MG/ML VIAL IVP PRN (17:45)
[2022-08-20] MEDS ORDERED: MORPHINE SULFATE 2 MG/ML SYRINGE IVP PRN (17:45)
[2022-08-20] MEDS: LORazepam 2 MG/ML VIAL IVP PRN (17:58)
[2022-08-21 03:25] VITALS: BP 116/55
[2022-08-21 08:11] VITALS: BP 117/58
[2022-08-21] MEDS ORDERED: SCOPOLAMINE HYDROBROMIDE 1 MG/72 HOUR PATCH TD SCH (09:00)
[2022-08-21] MEDS: LORazepam 2 MG/ML VIAL IVP PRN (11:34)
[2022-08-21] MEDS: MORPHINE SULFATE 2 MG/ML SYRINGE IVP PRN ×2 (11:35→19:17)
[2022-08-21 16:10] VITALS: BP 122/51
[2022-08-21 20:50] VITALS: BP 132/53
[2022-08-22 04:10] VITALS: BP 95/48
[2022-08-22] MEDS: MORPHINE SULFATE 2 MG/ML SYRINGE IVP PRN ×3 (05:27→18:12)
[2022-08-22 08:18] LABS: MAGNESIUM 2.3 mg/dL (1.80-2.40); PHOSPHORUS 6.5 mg/dL (2.5-4.9)
[2022-08-22 08:48] VITALS: BP 106/42
[2022-08-22 16:20] VITALS: BP 101/38
[2022-08-22 20:00] VITALS: BP 98/46
[2022-08-23] MEDS: MORPHINE SULFATE 2 MG/ML SYRINGE IVP PRN (03:36)
[2022-08-23 03:50] VITALS: BP 44/14
== END 2022-08-23 04:40 | DRG 207 ==
LOC: EMS 23:26 → ICUN 08-07 12:09 → ICU 08-08 05:00 → 6N 08-20 21:10 → 6S 08-21 13:41
PROVIDERS: ADMIT Internal Medicine; ATTEND Internal Medicine
PROC: 5A1955Z Respiratory Ventilation, Greater than 96 Consecutive Hours (ICD-10-PCS; principal; 2022-08-07)
PROC: 0BH17EZ Insertion of Endotracheal Airway into Trachea, Via Natural or Artificial Opening (ICD-10-PCS; 2022-08-07)
PROC: 05HY33Z Insertion of Infusion Device into Upper Vein, Percutaneous Approach (ICD-10-PCS; 2022-08-08)
PROC: 4A00X4Z Measurement of Central Nervous Electrical Activity, External Approach (ICD-10-PCS; 2022-08-12)
DX: J96.00 Acute respiratory failure, unspecified whether with hypoxia or hypercapnia (principal); I62.01 Nontraumatic acute subdural hemorrhage; I62.03 Nontraumatic chronic subdural hemorrhage; G93.41 Metabolic encephalopathy; J18.9 Pneumonia, unspecified organism; Z99.11 Dependence on respirator [ventilator] status; N17.9 Acute kidney failure, unspecified; E44.0 Moderate protein-calorie malnutrition; N39.0 Urinary tract infection, site not specified; G72.81 Critical illness myopathy; R29.810 Facial weakness; R56.9 Unspecified convulsions; E11.9 Type 2 diabetes mellitus without complications; E66.9 Obesity, unspecified; K72.90 Hepatic failure, unspecified without coma; I95.9 Hypotension, unspecified; I10 Essential (primary) hypertension; D63.8 Anemia in other chronic diseases classified elsewhere; D69.6 Thrombocytopenia, unspecified; K76.82 Hepatic encephalopathy; Z66 Do not resuscitate; K74.60 Unspecified cirrhosis of liver; E78.00 Pure hypercholesterolemia, unspecified; Z20.822 Contact with and (suspected) exposure to COVID-19; E87.5 Hyperkalemia; R68.0 Hypothermia, not associated with low environmental temperature; Z86.73 Personal history of transient ischemic attack (TIA), and cerebral infarction without residual deficits; Z88.1 Allergy status to other antibiotic agents; Z88.0 Allergy status to penicillin; Z51.5 Encounter for palliative care; Z68.33 Body mass index [BMI] 33.0-33.9, adult; Z88.8 Allergy status to other drugs, medicaments and biological substances
CPT/HCPCS: 36245; 36569; 36600; 70450; 71045; 76700; 76937; 80048; 80053; 80202; 80307; 81001; 81002; 82140; 82805; 82948; 82962; 83721; 83735; 84100; 84484; 85025; 85610; 85730; 86850; 86900; 86901; 86923; 87070; 87081; 87086; 87186; 87205; 93005; 93306; 93970; 94002; 94003; 95816; 99291; C9113; G0378; J0360; J0712; J1815; J1940; J1956; J2060; J2270; J2405; J2765; J3370; J3490; J7030; J7040; J7050; J7060; J7120; P9016; Q9967; 36415-L1; 36415-TC